=== PATIENT | male | born 1975 | race African-American/Black ===

== ENCOUNTER 2016-11-28 14:27 | Day surgery (SDC) | payer OTHER ==
[~2016-11-28 14:27] MED LIST: BUPIVACAINE HCL 0.5 % INJ/PF 30 ML SDV ONE; CEFAZOLIN 2 GM/D5W RTU 2 GM/50 ML RTUPB IV PRN; GLYCOPYRROLATE INJ 0.4 MG/2 ML VIAL ONE; LIDOCAINE 2% INJ-PF (20 MG/ML) 10 ML AMPUL ONE; METOCLOPRAMIDE HCL INJ/PF 10 MG/2 ML SDV ONE; ONDANSETRON HCL INJ/PF 4 MG/2 ML SDV ONE; SUCCINYLCHOLINE CHLORIDE INJ 200 MG/10 ML VIAL ONE
[2016-11-28 15:55] LABS: ABSOLUTE EOSINOPHILS # (AUTO) 0.1 10^3/uL (0.0-0.6); ABSOLUTE LYMPHOCYTES (AUTO) 2.8 10^3/uL (0.5-4.7); ABSOLUTE MONOCYTES (AUTO) 0.8 10^3/uL (0.1-1.4); ABSOLUTE NEUT (AUTO) 5.5 10^3/uL (1.7-8.2); BASOPHILS % (AUTO) 0.3 % (0-2); EOSINOPHILS % (AUTO) 0.6 % (0-6); HEMATOCRIT 35.4 % (37.9-51.0); HEMOGLOBIN 11.7 g/dL (13.5-17.0); HGB HCT DIFFERENCE -0.3; LYMPHOCYTES % (AUTO) 30.4 % (13-45); MEAN CORPUSCULAR HEMOGLOBIN 29.6 pg (27.0-33.4); MEAN CORPUSCULAR VOLUME 89 fl (80-97); MONOCYTES % (AUTO) 8.4 % (3-13); RED BLOOD COUNT 3.96 10^6/uL (4.35-5.55); RED CELL DISTRIBUTION WIDTH 13.7 % (11.5-14.0); SEGMENTED NEUTROPHILS % (AUTO) 60.3 % (42-78); WHITE BLOOD COUNT 9.2 10^3/uL (4.0-10.5)
[2016-11-28 16:20] LABS: ANION GAP 12 (5-19); BLOOD UREA NITROGEN 11 mg/dL (7-20); CALCIUM 9.7 mg/dL (8.4-10.2); CARBON DIOXIDE 27 mmol/L (22-30); CHLORIDE 105 mmol/L (98-107); CREATININE RESULT 0.88 mg/dL (0.52-1.25); GLUCOSE 82 mg/dL (75-110); POTASSIUM 3.9 mmol/L (3.6-5.0)
[2016-11-28 16:31] LABS: APPEARANCE,URINE CLEAR; BILIRUBIN,URINE NEGATIVE (NEGATIVE); GLUCOSE, URINE NEGATIVE (NEGATIVE); KETONES,URINE NEGATIVE (NEGATIVE); LEUKOCYTE ESTERASE,URINE NEGATIVE (NEGATIVE); NITRITE,URINE NEGATIVE (NEGATIVE); PROTEIN,URINE NEGATIVE (NEGATIVE); URINE SPECIFIC GRAVITY 1.009; UROBILINOGEN,URINE NEGATIVE mg/dL (<2.0)
[2016-11-28] MEDS ORDERED: MIDAZOLAM 2 MG/2 ML INJ ONE (18:24)
[2016-11-28] MEDS ORDERED: FENTANYL CITRATE INJ/PF 250 MCG/5 ML AMPULE ONE ×2 (18:24)
[2016-11-28] MEDS ORDERED: PROPOFOL INJ 200 MG/20 ML VIAL IV ONE (18:25)
[2016-11-28] MEDS ORDERED: MORPHINE SULFATE 10 MG/ML INJ ONE (18:25)
[2016-11-28] MEDS ORDERED: ACETAMINOPHEN 100 ML IV ONE (18:25)
--- NOTE | 2016-11-28 18:42 | EKG REPORT ---
SEVERITY:- NORMAL ECG - SINUS RHYTHM ST ELEV, PROBABLE NORMAL EARLY REPOL PATTERN : Confirmed by: Sona Reed MD 28-Nov-2016 18:41:12
[2016-11-28] MEDS ORDERED: PROMETHAZINE HCL INJ 25 MG/1 ML VIAL IV PRN ×2 (19:18)
[2016-11-28] MEDS ORDERED: FENTANYL CITRATE INJ/PF 100 MCG/2 ML AMPUL IV PRN ×3 (19:18)
[2016-11-28] MEDS ORDERED: MORPHINE SULFATE 10 MG/ML INJ IV PRN ×2 (19:18→20:27)
[2016-11-28] MEDS ORDERED: OXYCODONE-ACETAMINOPHEN 5-325 MG TABLET PO PRN ×3 (19:18→20:27)
[2016-11-28] MEDS ORDERED: DIPHENHYDRAMINE HCL 50 MG/ML VIAL IV PRN (19:18)
[2016-11-28] MEDS ORDERED: MEPERIDINE HCL/PF INJ 25 MG/1 ML DISP.SYRIN IV PRN (19:18)
[2016-11-28] MEDS ORDERED: ONDANSETRON HCL INJ/PF 4 MG/2 ML SDV IV PRN (20:27)
--- NOTE | 2016-11-28 20:28 | PDOC DISCHARGE SUMMARY ---
Discharge Summary (SDC) - Discharge Final Diagnosis: Right Distal Radius Fracture Date of Surgery: 11/28/16 Discharge Date: 11/28/16 Condition: Good Treatment or Instructions: Schedule Follow Up w/ Dr. Marcus Randolph @ [facility] for Surgery to be seen in 10-14 days or as scheduled [place]: [place]: [place]: Keep splint clean/dry/intact. Ice and elevate May begin finger range of motion attempting to make full fist. Stool softener of choice when on pain medication. Prescriptions: Oxycodone HCl/Acetaminophen [Percocet 7.5-325 Mg Tablet] 1 each PO Q6 PRN #55 tablet PRN Reason: Discharge Diet: As Tolerated Respiratory Treatments at Home: Deep Breathing/Coughing Discharge Activity: No Lifting Over 10 Pounds, No Lifting/Push/Pulling Report the Following to Your Physician Immediately: Fever over 101 Degrees, Unusual Bleeding, Redness, Swelling, Warmth, Increased Soreness, Numbness, Tingling Sensation
--- NOTE | 2016-11-28 20:33 | Operative Report ---
Operative Report DATE OF SURGERY: 11/28/16 PREOPERATIVE DIAGNOSIS: Left Distal Radius Fracture <2 Parts POSTOPERATIVE DIAGNOSIS: Left Distal Radius Fracture <2 Parts OPERATION: ORIF Left Distal Radius Fracture <2 Parts SURGEON: CALIXTO MYLES ANESTHESIA: GA COMPLICATIONS: None ESTIMATED BLOOD LOSS: Minimal PROCEDURE: Indication for above procedure: 41-year-old male who sustained an injury to his left wrist. Patient was seen at the [place] emergency room where x-rays demonstrated evidence of a distal radius fracture. He subsequently followed up at our office at which point I discussed with him treatment options including operative versus nonoperative intervention be given the comminution and severity I recommended operative treatment. Risks and benefits of the operative procedure were explained to the patient he verbalized understanding consented for the procedure. Procedure In Detail: Patient was seen and evaluated in the preoperative holding area. The LEFT upper extremity was initialized and marked. Patient received 2g of Ancef IV for bacterial prophylaxis. Patient was taken back to the operative room where transferred to the operative table and placed under general anesthesia. Once they were adequately anesthetized and a nonsterile tourniquet was placed on his upper extremity. A surgical team debriefing was performed ensuring all instrumentation was available, the surgical procedure was discussed with possible concerns reviewed. The upper extremity was prepped with chlorhexidine and alcohol and draped in a sterile fashion. A timeout was done identifying correct patient, procedure and extremity everyone in attendance agree with this and verbalized no concerns.The extremity was exsanguinated the tourniquet was inflated to 200 mmHg. A longitudinal skin incision was made via a volar approach of Angus along the FCR tendon sheath. The FCR tendon sheath was opened and the FCR retracted ulnarly, the palmar cutaneous patient median nerve was identified and protected throughout the entirety of the case. The radial artery was identified and retracted radially. Dissection was done down to the FPL which was carefully sweeped ulnarly. This brought me to the pronator quadratus which was elevated off of the distal radius via sharp dissection with a 15 blade to allow later repair. The brachioradialis tendon was carefully elevated off the radial styloid. There is evidence of fracture healing and fibrosis thus any intervening fibrosis and early callus was excised. I then utilized a [place] elevator to mainly reduce the fracture under direct visualization there was evidence of mild comminution volarly. Once this was complete a Acumed 3 hole volar distal radius plate was then placed into position and fixated with a K wire distally x2. AP and lateral radiographs were then obtained demonstrating appropriate placement of the plate and with reduction of the fracture. I then used a large reduction tenaculum bringing the plate down to bone distally. I drilled the near cortex and placed a locking screw bringing the plate further down to bone, avoiding any liftoff of the plate from the volar cortex that could cause flexor tendon irritation post-operativley. I then drilled the near cortex and to but not thru the far cortex and measured the appropriate size screw, locking screws were then placed in the remaining holes. Two additional screws were placed into the styloid this was done utilizing variable angle screws giving further stability to the radial styloid piece. AP and lateral radiographs were obtained demonstrating appropriate placement of plate with no evidence of penetration intra-articular or within the DRUJ. I then turned my attention to the proximal screws. I drilled bicortically bringing the plate down to bone with a cortex screw. The remaining 2 holes proximally were drilled bicortically placing the appropriate size cortex in the proximal most hole and a additional cortical screw in the distal shaft hole. AP and lateral radiographs were done confirming appropriate placement of the plate and reduction of the fracture there was yazidi of radial height, radial inclination and volar tilt. There was evidence of dorsal intra-articular comminution but no evidence of intra-articular step-off or diastases. No evidence of dorsal screw prominence or intra-articular penetration of the DRUJ or radiocarpal joint. I then copious irrigated the wound with normal saline. There was no evidence of DRUJ instability on examination, Negative Whitmore's test, No crepitus with range of motion at the radiocarpal joint or DRUJ. I then closed the pronator quadratus with interrupted 3-0 Vicryl suture. Subcutaneous tissues were closed with interrupted 4-0 Monocryl suture. The skin was closed with a running subcuticular 4-0 Monocryl suture which was reinforced with Dermabond and Steri- Strips. 10 mL of 0.5% Marcaine were injected for postoperative pain control. The tourniquet was then deflated. Was dressed with sterile 4 x 4's and patient was placed in a well-padded volar splint with bias wrap. Sponge counts, instrument counts and needle counts were correct. There was no intraoperative complications patient tolerated procedure well stable to PACU. Postoperative plan: Patient will be switched to a removal brace at her first postoperative followup visit and begin range of motion. Will obtain radiographs at followup of the wrist.Will obtain radiographs at followup of the wrist.
[2016-11-28] MEDS: MEPERIDINE HCL/PF INJ 25 MG/1 ML DISP.SYRIN ONE ×2 (20:40→20:45)
[2016-11-28 23:07] VITALS: BP 130/91
== END 2016-11-29 00:26 | disposition home or self-care (01) ==
LOC: OROUT 14:27 → 4N 21:52 → OROUT 11-29 00:26
PROVIDERS: ATTEND Orthopaedic Surgery
PROC: 0PSJ04Z Reposition Left Radius with Internal Fixation Device, Open Approach (ICD-10-PCS; principal; 2016-11-28 16:45)
DX: S52.502A Unspecified fracture of the lower end of left radius, initial encounter for closed fracture (principal); W19.XXXA Unspecified fall, initial encounter; Z79.82 Long term (current) use of aspirin; Z87.891 Personal history of nicotine dependence
CPT/HCPCS: 36415; 85025; 80048; 81001; 71010; 73100; 93005; 93010; 25608; C1713; J2250; J3010; J2175; J2765; J2270; J0330; J2405; J2704; J3490; J0690; J0131; 01830